=== PATIENT | male | born 1935 | race Caucasian/White ===

== ENCOUNTER 2017-02-08 09:44 | Inpatient (IN) | payer OTHER, MEDICAID ==
[~2017-02-08 09:44] MED LIST: BACITRACIN 50,000 UNITS/10 ML SYR IRR ONE; BUPIVACAINE 0.25% 30 ML SDV ONE; BUPIVACAINE/EPI 0.25% 30 ML SDV ONE; THROMBIN (BOVINE) 20,000 UNIT VIAL TP ONE
--- NOTE | 2017-02-08 13:04 | PDANEPAE ---
ANE History of Present Illness 81 year old male here for lumbar surgery. ANE Past Medical History Past Medical History: No URI/fevers x2 weeks. - Cardiovascular History Hx Hypertension: Yes Hx Arrhythmias: No Hx Chest Pain: No Hx Coronary Artery / Peripheral Vascular Disease: No Hx CHF / Valvular Disease: No Hx Palpitations: No - Pulmonary History Hx COPD: No Hx Asthma/Reactive Airway Disease: No Hx Recent Upper Respiratory Infection: No Hx Oxygen in Use at Home: No Hx Sleep Apnea: No Sleep Apnea Screening Result - Last Documented: Negative Pulmonary History Comment: hypercholesteremia - Neurologic History Hx Cerebrovascular Accident: No Hx Seizures: No Hx Dementia: No - Endocrine History Hx Diabetes: No - Renal History Hx Renal Disorders: No - Liver History Hx Hepatic Disorders: No - Neurological & Psychiatric Hx Hx Neurological and Psychiatric Disorders: Yes Neurological / Psychiatric History Comment: mild dementia - Cancer History Hx Cancer: Yes Cancer History Comment: colon ca - GI History GERD: mild Hx Gastrointestinal Disorders: Yes Gastrointestinal History Comment: acid reflux - Other Health History Other Health History: GOUT - Chronic Pain History Chronic Pain: Yes (legs) - Surgical History Prior Surgeries: colon resection. appendectomy ANE Review of Systems - Exercise capacity METS (RN): 4 METS - Systems Constitutional: Reports: no symptoms Cardiac: Reports: no symptoms Respiratory: Reports: no symptoms Neurological: Reports: other (pain and weakness in legs L>R) ANE Patient History - Allergies Allergies/Adverse Reactions: No Known Allergies Allergy (Unverified 02/07/17 14:31) - Home Medications Home medications: home medication list seen and reviewed Home Medications: Allopurinol 02/07/17 [Last Taken Unknown] Aspirin 02/07/17 [Last Taken Unknown] Atorvastatin Calcium 02/07/17 [Last Taken Unknown] Herbals/Supplements -Info Only 02/07/17 [Last Taken Unknown] Lisinopril 02/07/17 [Last Taken Unknown] Naproxen 02/07/17 [Last Taken Unknown] Omeprazole 02/07/17 [Last Taken Unknown] Probenecid 02/07/17 [Last Taken Unknown] Tramadol HCl 02/07/17 [Last Taken Unknown] - NPO status NPO Status: no food or drink >8 hours - Anes Hx Anes Hx: no prior problems - Smoking Hx Smoking Status: Former smoker (quit 22 years ago) Marijuana use: No - Alcohol Use Alcohol Use: None (quit x22 years ago) - Family Anes Hx Family Hx Anesthesia Complications: neg ANE Labs/Vital Signs - Labs - CBC WBC: labs not available yet, will review when done - Vital Signs Vital Signs: reviewed preoperatively; see RN documention for details Height: 162.56 cm Weight: 78.018 kg ANE Physical Exam - Airway Neck exam: FROM Mallampati Score: Class 2 Mouth exam: dentures (upper complete, lower parrtial) - Pulmonary Pulmonary: no respiratory distress, clear to auscultation - Cardiovascular Cardiovascular: regular rate and rhythym - ASA Status ASA Status: III ANE Anesthesia Plan Anesthesia Plan: general endotracheal anesthesia Lines/Monitors: additional IV
[2017-02-08] MEDS ORDERED: fentaNYL 100 MCG/2 ML INJ IT ONE (13:16)
[2017-02-08] MEDS ORDERED: ceFAZolin 2 GM/DEXTROSE 100 ML IV ONE (13:16)
[2017-02-08] MEDS ORDERED: morphINE PF 5 MG/10 ML INJ IT ONE ×2 (13:16→18:00)
[2017-02-08] MEDS ORDERED: morphINE SR 15 MG TAB PO ONE (13:17)
[2017-02-08] MEDS ORDERED: DEXAMETHASONE 10 MG/ML VIAL IVP ONE (13:17)
[2017-02-08] MEDS ORDERED: TRANEXAMIC ACID 780 MG in NS 100 ML IV ONE (13:17)
[2017-02-08] MEDS ORDERED: GABAPENTIN 300 MG CAP PO ONE (13:17)
[2017-02-08] MEDS ORDERED: TRANEXAMIC ACID 1,000 MG in NS 100 ML IV ONE (13:17)
[2017-02-08] MEDS ORDERED: ACETAMINOPHEN 500 MG TAB PO ONE (13:17)
--- NOTE | 2017-02-08 13:19 | PDHPUP ---
History & Physical Update H&P update statement: This history and physical update is based on an assessment of the patient which was completed after admission or registration (within 24 hours), but prior to the surgery/procedure.
[2017-02-08] MEDS ORDERED: CITRATE DEXTROSE SOLN 500 ML BAG ONE (13:30)
[2017-02-08] MEDS ORDERED: PROPOFOL/EMULSION 500 MG/50 ML BOTTLE IV ONE ×3 (13:38→16:28)
[2017-02-08] MEDS ORDERED: fentaNYL 100 MCG/2 ML INJ ONE ×2 (13:38→17:10)
[2017-02-08] MEDS ORDERED: REMIFENTANIL HCL 1 MG VIAL ONE ×2 (13:38)
[2017-02-08 13:53] LABS: % IMMATURE GRANULYOCYTES 0.2 % (0.0-1.1); ABSOLUTE IMMATURE GRANULOCYTES 0.01 10^3/uL (0.00-0.10); ADD DIFF? NO; ADD MORPH? NO; ADD SCAN? NO; ATYPICAL LYMPHOCYTE FLAG 0 (0-99); FRAGMENT RBC FLAG 0 (0-99); HEMATOCRIT 40.8 % (40.0-51.0); HEMOGLOBIN 14.2 g/dL (13.7-17.5); LEFT SHIFT FLG 0 (0-99); LIPEMIA HEMOLYSIS FLAG 90 (0-99); MEAN CELL HEMOGLOBIN 30.9 pg (27.9-34.1); MEAN CELL HEMOGLOBIN CONCENTR. 34.8 g/dL (32.4-36.7); MEAN CELL VOLUME 88.9 fL (81.5-99.8); MEAN PLATELET VOLUME 10.7 fL (8.7-11.7); PLATELET CLUMPS FLAG 0 (0-99); PLATELET COUNT 196 10^3/uL (150-400); RED BLOOD CELL COUNT 4.59 10^6/uL (4.40-6.38); RED CELL DISTRIBUTION WIDTH 14.5 % (11.5-15.2)
[2017-02-08] MEDS ORDERED: LR 1,000 ML IV ONE (13:54)
[2017-02-08] MEDS ORDERED: DEXMEDETOMIDINE HCL 400 MCG in NS 100 ML IV SCH (14:00)
[2017-02-08] MEDS ORDERED: ROCURONIUM 50 MG/5 ML VIAL ONE (14:00)
[2017-02-08] MEDS ORDERED: ONDANSETRON 4 MG/2 ML VIAL ONE (14:00)
[2017-02-08 14:07] LABS: ANION GAP 14 mEq/L (8-16); CALCIUM 9.7 mg/dL (8.5-10.4); CARBON DIOXIDE 24 mEq/l (22-31); CHLORIDE 108 mEq/L (97-110); CREATININE 0.9 mg/dL (0.7-1.3); GLOMERULAR FILTRATION RATE > 60; GLUCOSE 83 mg/dL (70-100); POTASSIUM 4.4 mEq/L (3.5-5.2); SODIUM 146 mEq/L (134-144)
[2017-02-08] MEDS ORDERED: VASOPRESSIN 20 UNIT/ML VIAL ONE (15:00)
[2017-02-08] MEDS ORDERED: ceFAZolin 1 GM VIAL ONE (17:20)
[2017-02-08] MEDS ORDERED: morphINE PF 10 MG/10 ML INJ IT ONE (17:30)
[2017-02-08] MEDS ORDERED: morphINE PF 5 MG/10 ML INJ ONE (17:31)
[2017-02-08] MEDS ORDERED: ALBUTEROL 3 ML DEYVIAL IH PRN (18:12)
[2017-02-08] MEDS ORDERED: ENALAPRILAT DIHYDRATE 1.25 MG/ML VIAL IVP PRN (18:12)
[2017-02-08] MEDS ORDERED: LR 500 ML IV PRN (18:12)
[2017-02-08] MEDS ORDERED: NALOXONE HCL 0.4 MG/ML INJ IVP PRN ×2 (18:12→18:55)
[2017-02-08] MEDS ORDERED: fentaNYL 100 MCG/2 ML INJ IVP PRN (18:12)
[2017-02-08] MEDS ORDERED: PROMETHAZINE HCL 25 MG/ML INJ IVP PRN (18:12)
[2017-02-08] MEDS ORDERED: hydrALAZINE 20 MG/ML VIAL ONE (18:17)
--- NOTE | 2017-02-08 18:31 | POSTOPPROG ---
Post Op Note Date of Operation: 02/08/17 Surgeon: Ej Huff Computer Scientist: Rebeca Anesthesiologist: Geneva Anesthesia: GET(General Endotracheal) Pre-op Diagnosis: L3/4,4/5 stenosis, DJD Post-op Diagnosis: Same Indication: back and leg pain, critical stenosis Procedure: L3/4,4/5 TLIF Findings: Stenosis Inf/Abcess present in the surg proc area at time of surgery?: No EBL: 100-500 Complications: none Drains: Brady Frias (to bulb suction)
[2017-02-08] MEDS ORDERED: METHOCARBAMOL 750 MG TAB PO PRN (18:36)
[2017-02-08] MEDS ORDERED: ONDANSETRON DISINTEGRATING 4 MG TAB PO PRN (18:36)
[2017-02-08] MEDS ORDERED: POLYETHYLENE GLYCOL 3350 17 GM PKT PO PRN (18:36)
[2017-02-08] MEDS ORDERED: BISACODYL 10 MG SUPP PR PRN (18:36)
[2017-02-08] MEDS ORDERED: diphenhydrAMINE 25 MG CAP PO PRN (18:36)
[2017-02-08] MEDS ORDERED: MAGNESIUM HYDROXIDE 30 ML UDCUP PO PRN (18:36)
[2017-02-08] MEDS ORDERED: ONDANSETRON 4 MG/2 ML VIAL IVP PRN (18:36)
[2017-02-08] MEDS ORDERED: morphINE PCA 30 MG/30 ML PCA IV PRN (18:41)
[2017-02-08] MEDS ORDERED: NS 1,000 ML IV SCH (18:45)
--- NOTE | 2017-02-08 18:47 | SOAPPROG ---
SOAP Progress Note Assessment/Plan: Post op Check: Assessment: Doing well s/p L3-5 TLIF Plan: CPM in PACU Transfer to floor per protocol SHAUN to bulb suction 02/08/17 18:43 Subjective: still sedated, but wakes and follows commands Objective: Vital Signs Temp Pulse Resp BP Pulse Ox 36.9 C 59 L 94 H 195/86 H 94 02/08/17 13:26 02/08/17 13:26 02/08/17 13:26 02/08/17 13:26 02/08/17 13:26 Laboratory Results 02/08/17 13:40 02/08/17 13:40 NEURO: TESFAYE to command, sens +LT Per RN Vitals: HR:57 BP: 106/44 O2: 99% ICD10 Worksheet Patient Problems: Problems Problem Status Onset Lumbar stenosis Acute - ICD10 Problem Qualifiers (1) Lumbar stenosis
--- NOTE | 2017-02-08 19:09 | GOP ---
[f rep st] OPERATIVE REPORT DATE OF OPERATION: 02/08/2017 SURGEON: Ej Huff MD [employer] FINISHER: SHANEL Chappell ANESTHESIA: General endotracheal. PREOPERATIVE DIAGNOSIS: Severe L3-4 and L4-5 degenerative disk disease and disk space collapse with unstable L4-5 spondylolisthesis and critical spinal stenosis at L3-4, L4-5, with severe lateral rec ess impingement and neural foraminal encroachment. The patient failed conservative care. High risk surgical candidate given age of 81 years, comorbidities, and required surgical intervention. POSTOPERATIVE DIAGNOSIS: Severe L3-4 and L4-5 degenerative disk disease and disk space collapse wit h unstable L4-5 spondylolisthesis and critical spinal stenosis at L3-4, L4-5, with severe lateral re cess impingement and neural foraminal encroachment. The patient failed conservative care. High ris k surgical candidate given age of 81 years, comorbidities, and required surgical intervention. PROCEDURE PERFORMED: 1. Left-sided L3-4 and L4-5 far lateral transpedicular decompression with L3 through L5 posterior s egmental (pedicle screw) fixation and posterolateral fusion with local autograft, bone morphogenic p rotein and morselized allograft. 2. L3-4 and L4-5 posterior/transforaminal lumbar interbody fusion by using 2 structural PEEK interb steve spacers, local autograft and bone morphogenic protein at each level. 3. Use of intraoperative microscopy, fluoroscopy and computer volumetric stereotactic navigation, w ith intraoperative neurophysiologic testing. 4. Injection of intrathecal narcotic analgesics and subcutaneous and intramuscular local anesthesia for postoperative pain control. FINDINGS: ESTIMATED BLOOD LOSS: 150 cc. INDICATIONS: The patient is an 81-year-old man with severe multilevel lumbar degenerative joint dis ease and disk space collapse with an unstable spondylolisthesis at the L4-5 level, and critical spin al stenosis at L3-4 and L4-5, with lateral recess and neural foraminal encroachment. The patient villareal s intractable back pain and left greater than right lower extremity radicular discomfort and neuroge hermilo claudication to the point of being in a wheelchair, and presents now for surgical decompression and stabilization with the understanding that there is no guarantee for good surgical outcome, and h e could be worse after surgery, or never recover from it. DESCRIPTION OF PROCEDURE: After informed consent was obtained, the patient was taken to the operati ng room and placed in the prone position on the Brady table. The lumbosacral area was prepped and draped in sterile fashion. After fluoroscopic localization of the correct levels, the subcutaneous and intramuscular tissues were infiltrated with local anesthesia. A midline linear incision was th en created from approximately L3 through L5. This was carried down to the fascial layer, which was incised using the monopolar electrocautery and carried in the subperiosteal plane along the spinous processes and lamina bilaterally. Intraoperative fluoroscopy was again utilized to verify the corre ct levels. Following this, the dissection was carried out over the facet joints. The microscope was then brought in after re-verification of the correct levels and left-sided far la teral transpedicular decompressions were performed with complete unroofing of the facet joints and n eural foramina at L3, L4 and L5, as well as the central canal. Right-sided hemilaminectomy defects were created and the lateral recess decompressed there as well, along with the central canal. Follo wing adequate decompression, the Patient Communicator neuronavigational system was brought in the field, and Adnexus volumetric stereotactic navigation, pedicle screws were placed at L3, L4, and L5 on the l eft. Each individual screw was tested neurophysiologically with monopolar electrical stimulation an d interpretation of the potentials by the surgeon. Rods were then individually placed first at L3-4 , then at L4-5, during which time, the interspaces were distracted apart and complete diskectomies w ere performed with preparation of the endplates and placement of 2 structural PEEK interbody spacers , local autograft and bone morphogenic protein for L3-4 and L4-5 posterior/transforaminal lumbar int erbody fusions. The screw and deepika system was then placed in a slight amount of compression, in orde r to facilitate bony union and to minimize the potential for posterior graft migration. Following this, axial devices were placed at L3-4 and L4-L5 in lieu of right-sided pedicle screws, i n order to maximize the bony surface area for the posterolateral fusion and minimize the risk of rica ral injury or other problems with the pedicle screws on that side. The remaining lamina and facet j oints were then extensively decorticated and the residual local autograft along with bone morphogeni c protein and morselized allograft was placed out laterally for posterolateral fusion from L3 throug h L5. 200 mcg of Duramorph along with 50 mcg of fentanyl was injected intrathecally for postoperati ve pain control along with the subcutaneous and intramuscular tissues, which were re-infiltrated wit h local anesthesia. A drain was then placed. The wound was again copiously irrigated with antibiot ic irrigation and closed in a layered fashion using interrupted Vicryl sutures followed by Steri-Str ips on the skin. COMPLICATIONS: None. DISPOSITION: The patient is currently in the process of being repositioned for extubation. /[id number]/MODL
--- NOTE | 2017-02-08 19:35 | POSTANESTH ---
Post Anesthetic Evaluation Cardiovascular Status: Normal, Stable Respiratory Status: Normal, Stable Level of Consciousness/Mental Status: Moderately Sleepy Pain Control: Adequate, Prn Tx Ordered Nausea/Vomiting Control: Adequate, Prn Tx Ordered Complications Possibly Related to Anesthesia: None Noted (Moves extremities x4.)
[2017-02-08] MEDS: ceFAZolin 2 GM/DEXTROSE 100 ML IV SCH (22:02)
[2017-02-08] MEDS: ACETAMINOPHEN 500 MG TAB PO SCH ×2 (22:02→22:52)
[2017-02-08] MEDS: FAMOTIDINE 20 MG TAB PO SCH ×2 (22:03→22:52)
[2017-02-08] MEDS: morphINE SR 15 MG TAB PO SCH (22:03)
[2017-02-08] MEDS: POLYETHYLENE GLYCOL 3350 17 GM PKT PO SCH (22:04)
[2017-02-08] MEDS: SENNOSIDES/DOCUSATE SODIUM TAB PO SCH (22:04)
[2017-02-09] MEDS: ACETAMINOPHEN 500 MG TAB PO SCH ×4 (05:23→20:40)
[2017-02-09] MEDS: ceFAZolin 2 GM/DEXTROSE 100 ML IV SCH (05:23)
[2017-02-09 05:24] LABS: % IMMATURE GRANULYOCYTES 0.6 % (0.0-1.1); ABSOLUTE IMMATURE GRANULOCYTES 0.05 10^3/uL (0.00-0.10); ADD DIFF? NO; ADD MORPH? NO; ADD SCAN? NO; ATYPICAL LYMPHOCYTE FLAG 0 (0-99); FRAGMENT RBC FLAG 0 (0-99); HEMATOCRIT 33.4 % (40.0-51.0); HEMOGLOBIN 11.4 g/dL (13.7-17.5); LEFT SHIFT FLG 10 (0-99); LIPEMIA HEMOLYSIS FLAG 90 (0-99); MEAN CELL HEMOGLOBIN 30.6 pg (27.9-34.1); MEAN CELL HEMOGLOBIN CONCENTR. 34.1 g/dL (32.4-36.7); MEAN CELL VOLUME 89.5 fL (81.5-99.8); MEAN PLATELET VOLUME 10.7 fL (8.7-11.7); PLATELET CLUMPS FLAG 0 (0-99); PLATELET COUNT 167 10^3/uL (150-400); RED BLOOD CELL COUNT 3.73 10^6/uL (4.40-6.38); RED CELL DISTRIBUTION WIDTH 14.4 % (11.5-15.2)
[2017-02-09 05:36] LABS: ANION GAP 10 mEq/L (8-16); CALCIUM 8.5 mg/dL (8.5-10.4); CARBON DIOXIDE 21 mEq/l (22-31); CHLORIDE 111 mEq/L (97-110); CREATININE 0.8 mg/dL (0.7-1.3); GLOMERULAR FILTRATION RATE > 60; GLUCOSE 101 mg/dL (70-100); POTASSIUM 4.3 mEq/L (3.5-5.2); SODIUM 142 mEq/L (134-144)
--- NOTE | 2017-02-09 07:50 | SOAPPROG ---
SOAP Progress Note Assessment/Plan: Assessment: POD #1 s/p L3-5 TLIF. Doing well , pain controlled Plan: PT/OT today LSO today Xrays today Continue SHAUN to bulb suction Subjective: awake, alert, comfortable. denies tingling or weakness Objective: Vital Signs Temp Pulse Resp BP Pulse Ox 36.8 C 54 L 18 137/85 H 99 02/09/17 07:39 02/09/17 07:39 02/09/17 07:39 02/09/17 07:39 02/09/17 07:39 Laboratory Results 02/09/17 04:37 02/09/17 04:37 02/08/17 02/09/17 02/10/17 05:59 05:59 05:59 Intake Total 2750 Output Total 775 Balance 1974 NEURO: TESFAYE, sens +LT follows commands SHAUN: 300ml ICD10 Worksheet Patient Problems: Problems Problem Status Onset Lumbar stenosis Acute - ICD10 Problem Qualifiers (1) Lumbar stenosis
[2017-02-09] MEDS: SENNOSIDES/DOCUSATE SODIUM TAB PO SCH ×2 (08:21→20:42)
[2017-02-09] MEDS: FAMOTIDINE 20 MG TAB PO SCH ×2 (08:21→20:42)
[2017-02-09] MEDS: POLYETHYLENE GLYCOL 3350 17 GM PKT PO SCH ×3 (08:21→20:40)
[2017-02-09] MEDS: morphINE SR 15 MG TAB PO SCH ×2 (08:22→20:42)
[2017-02-09] MEDS: ENOXAPARIN 40 MG/0.4 ML SYR SC SCH (08:22)
[2017-02-09] MEDS: oxyCODONE IR 5 MG TAB PO PRN (15:07)
[2017-02-09] MEDS: LISINOPRIL 10 MG TAB PO SCH (20:41)
[2017-02-10] MEDS: ACETAMINOPHEN 500 MG TAB PO SCH ×3 (04:13→21:17)
[2017-02-10] MEDS: FAMOTIDINE 20 MG TAB PO SCH ×2 (08:14→21:18)
[2017-02-10] MEDS: morphINE SR 15 MG TAB PO SCH ×2 (08:14→21:20)
[2017-02-10] MEDS: SENNOSIDES/DOCUSATE SODIUM TAB PO SCH ×2 (08:14→21:23)
[2017-02-10] MEDS: POLYETHYLENE GLYCOL 3350 17 GM PKT PO SCH ×3 (08:15→21:38)
[2017-02-10] MEDS: ENOXAPARIN 40 MG/0.4 ML SYR SC SCH (08:15)
--- NOTE | 2017-02-10 08:46 | NEUSURGPN ---
Assessment/Plan: POD #2 s/p L3-5 TLIF. Doing well , pain controlled Plan: PT/OT today Xrays pending Continue SHAUN drain Optimize pain management DVT prophx: TEDs, SCDs, Lovenox POD1 Please notify NS with any change in neuro/motor exam Subjective: low back pain Objective: NAD A&Ox3 MAEx4 / and equal in BUE and BLE. Incision c/d/i. SAHUN drain serosanginous Catheter Insertion Date: 02/08/17 - Physician Discussed Patient with : [facility] Neurosurgery Physical Exam - Vitals, I&O, Labs I and O 02/09/17 02/10/17 02/11/17 05:59 05:59 05:59 Intake Total 2750 0 Output Total 775 195 Balance 1974 - Weight 78.018 kg Intake: IV Intake (ml) 1650 0 IV Infused (ml) 1100 Ns 1,000 ml @ 100 mls/hr 900 IV CONT TRACY Rx#: [id number] ceFAZolin 2 GM/DEXTROSE 200 100 ml @ 200 mls/hr IV Q8HRS TRACY Rx#:[id number] Output: Urine (ml) 325 Catheter 325 Estimated Blood Loss (ml) 150 SHAUN Drain Output (ml) 300 195 Back Brady Frias 300 195 Other: Intake Quantity Yes Sufficient Number of Voids Catheter 1 Vital Signs Temp Pulse Resp BP Pulse Ox 36.5 C 69 14 112/57 L 91 L 02/10/17 08:00 02/10/17 08:00 02/10/17 08:00 02/10/17 08:00 02/10/17 08:00 Laboratory Results 02/09/17 04:37 02/09/17 04:37 ICD10 Worksheet Patient Problems: Problems Problem Status Onset Lumbar stenosis Acute
[2017-02-10] MEDS: LISINOPRIL 10 MG TAB PO SCH (21:19)
[2017-02-11] MEDS: ACETAMINOPHEN 500 MG TAB PO SCH (05:14)
--- NOTE | 2017-02-11 07:40 | SOAPPROG ---
SOAP Progress Note Assessment/Plan: Assessment: POD #1 s/p L3-5 TLIF. Doing well , pain controlled ambulating with walker Plan: PT/OT DC SHAUN to bulb suction DC home discussed with Dr. Aldridge Subjective: walking hallway with walker doing well no BM denies new issues Objective: Vital Signs Temp Pulse Resp BP Pulse Ox 36.5 C 78 14 158/64 H 94 02/11/17 04:00 02/11/17 04:00 02/11/17 04:00 02/11/17 04:00 02/11/17 04:00 Laboratory Results 02/09/17 04:37 02/09/17 04:37 02/10/17 02/11/17 02/12/17 05:59 05:59 05:59 Intake Total 0 Output Total 195 85 Balance -195 -85 Neuro: Calvin, sens +LT ambulatory Dressing: CDI SHAUN: 85ml ICD10 Worksheet Patient Problems: Problems Problem Status Onset Lumbar stenosis Acute - ICD10 Problem Qualifiers (1) Lumbar stenosis
[2017-02-11 07:47] VITALS: BP 157/67; PULSE 86; RESP 18; TEMP 98; O2SAT 95
[2017-02-11] MEDS: ENOXAPARIN 40 MG/0.4 ML SYR SC SCH (08:32)
[2017-02-11] MEDS: POLYETHYLENE GLYCOL 3350 17 GM PKT PO SCH (08:33)
[2017-02-11] MEDS: SENNOSIDES/DOCUSATE SODIUM TAB PO SCH (08:33)
[2017-02-11] MEDS: FAMOTIDINE 20 MG TAB PO SCH (08:33)
[2017-02-11] MEDS: morphINE SR 15 MG TAB PO SCH (08:33)
[2017-02-11] MEDS ORDERED: MAGNESIUM CITRATE 300 ML BOTTLE PO ONE (08:48)
[2017-02-11] MEDS: oxyCODONE IR 5 MG TAB PO PRN (11:48)
== END 2017-02-11 14:23 | disposition home or self-care (01) | DRG 460 ==
LOC: F3N 12:25
PROVIDERS: ADMIT Neurological Surgery; ATTEND Neurological Surgery
PROC: 4A1004G Monitoring of Central Nervous Electrical Activity, Intraoperative, Open Approach (ICD-10-PCS; principal; 2017-02-08 13:45)
PROC: 00NY0ZZ Release Lumbar Spinal Cord, Open Approach (ICD-10-PCS; principal; 2017-02-08 13:45)
PROC: 0SG10AJ Fusion of 2 or more Lumbar Vertebral Joints with Interbody Fusion Device, Posterior Approach, Anterior Column, Open Approach (ICD-10-PCS; principal; 2017-02-08 13:45)
PROC: 8E0WXBZ Computer Assisted Procedure of Trunk Region (ICD-10-PCS; principal; 2017-02-08 13:45)
PROC: 0ST20ZZ Resection of Lumbar Vertebral Disc, Open Approach (ICD-10-PCS; principal; 2017-02-08 13:45)
CPT/HCPCS: 97116-GP; 97161-GP; 97165-GO; 97535-GO; C1713; C1762; G8978-GP-CK; G8979-GP-CI; G8987-GO-CK; G8988-GO-CI; G8989-GO-CI; J0360; J0690; J1100; J1650; J2274; J2405; J2704; J3010; J7060

== ENCOUNTER 2017-02-16 14:37 | Inpatient (IN) | payer OTHER, MEDICAID ==
[2017-02-16] MEDS ORDERED: LACTULOSE 20 GM/30 ML UDCUP PO PRN (17:00)
[2017-02-16] MEDS ORDERED: ONDANSETRON DISINTEGRATING 4 MG TAB PO PRN (17:00)
[2017-02-16] MEDS ORDERED: oxyCODONE IR 5 MG TAB PO PRN (17:00)
[2017-02-16] MEDS ORDERED: diphenhydrAMINE 25 MG CAP PO PRN (17:00)
[2017-02-16] MEDS ORDERED: ONDANSETRON 4 MG/2 ML VIAL IVP PRN (17:00)
[2017-02-16] MEDS ORDERED: METHOCARBAMOL 750 MG TAB PO PRN (17:00)
[2017-02-16] MEDS ORDERED: NS 1,000 ML IV SCH (17:00)
[2017-02-16] MEDS ORDERED: BISACODYL 10 MG SUPP PR PRN (17:00)
[2017-02-16] MEDS ORDERED: MAGNESIUM HYDROXIDE 30 ML UDCUP PO PRN (17:00)
[2017-02-16] MEDS ORDERED: DIAZEPAM 5 MG TAB PO PRN (17:04)
[2017-02-16 19:08] LABS: ATYPICAL LYMPHOCYTE FLAG 10 (0-99); FRAGMENT RBC FLAG 0 (0-99); LEFT SHIFT FLG 0 (0-99); LIPEMIA HEMOLYSIS FLAG 80 (0-99)
[2017-02-16 19:15] LABS: PLATELET CLUMPS FLAG 230 (0-99)
[2017-02-16 19:46] LABS: ANION GAP 15 mEq/L (8-16); CALCIUM 8.8 mg/dL (8.5-10.4); CARBON DIOXIDE 16 mEq/l (22-31); CHLORIDE 100 mEq/L (97-110); CREATININE 0.9 mg/dL (0.7-1.3); GLOMERULAR FILTRATION RATE > 60; GLUCOSE 100 mg/dL (70-100); POTASSIUM 4.5 mEq/L (3.5-5.2); SODIUM 131 mEq/L (134-144)
[2017-02-16 20:37] LABS: % IMMATURE GRANULYOCYTES 0.7 % (0.0-1.1); ABSOLUTE IMMATURE GRANULOCYTES 0.05 10^3/uL (0.00-0.10); ADD DIFF? NO; ADD MORPH? NO; ADD SCAN? YES; ATYPICAL LYMPHOCYTE FLAG 10 (0-99); FRAGMENT RBC FLAG 0 (0-99); HEMATOCRIT 30.6 % (40.0-51.0); HEMOGLOBIN 10.4 g/dL (13.7-17.5); LEFT SHIFT FLG 0 (0-99); LIPEMIA HEMOLYSIS FLAG 90 (0-99); MEAN CELL HEMOGLOBIN 30.5 pg (27.9-34.1); MEAN CELL VOLUME 89.7 fL (81.5-99.8); MEAN PLATELET VOLUME 9.9 fL (8.7-11.7); PLATELET COUNT 197 10^3/uL (150-400); RED BLOOD CELL COUNT 3.41 10^6/uL (4.40-6.38); RED CELL DISTRIBUTION WIDTH 13.6 % (11.5-15.2)
[2017-02-16 20:39] LABS: PLATELET CLUMPS FLAG 300 (0-99)
[2017-02-16] MEDS ORDERED: GADOBUTROL 10 ML VIAL IVP ONE (20:56)
[2017-02-16 21:21] VITALS: RESP 18
[2017-02-16 21:28] LABS: SCAN NEGATIVE
[2017-02-16] MEDS: morphINE SR 15 MG TAB PO SCH (23:16)
[2017-02-16] MEDS: PROBENECID 500 MG TAB PO SCH (23:30)
[2017-02-16] MEDS: ACETAMINOPHEN 500 MG TAB PO SCH (23:30)
[2017-02-16] MEDS: FAMOTIDINE 20 MG TAB PO SCH (23:32)
[2017-02-17] MEDS: SENNOSIDES/DOCUSATE SODIUM TAB PO SCH ×2 (00:08→09:34)
[2017-02-17 03:44] VITALS: TEMP 97.3
[2017-02-17 05:56] LABS: COLOR YELLOW; LEUKOCYTE ESTERASE,URINE NEGATIVE (NEGATIVE); NITRITE,URINE NEGATIVE (NEGATIVE)
[2017-02-17] MEDS: ACETAMINOPHEN 500 MG TAB PO SCH (06:40)
[2017-02-17 07:55] VITALS: PULSE 58; O2SAT 96
[2017-02-17] MEDS: FAMOTIDINE 20 MG TAB PO SCH (08:56)
[2017-02-17] MEDS: PROBENECID 500 MG TAB PO SCH (08:56)
[2017-02-17] MEDS ORDERED: ALLOPURINOL 300 MG TAB PO SCH (09:00)
[2017-02-17] MEDS ORDERED: LISINOPRIL 40 MG TAB PO SCH (09:00)
[2017-02-17 09:03] VITALS: BP 135/57
--- NOTE | 2017-02-17 09:07 | NEUSURGPN ---
Date of Surgery: 02/08/17 Post Op Day: 9 Assessment/Plan: 81 yr old s/p L3-[address] Huff on 02/08 direct admitted 02/16 due to pain and decreased mobility Plan: -Pain is improved this am -UA negative -MRI lumbar shows post operative changes, patient refused contrast so unable to assess for infection. No need to repeat MRI. -WBC 6.8 -US doppler negative for DVT -Holding MS Contin, patient pain seems to be managed without it and will continue to hold. Improved mental status -May discharge home today, follow up with Dr Huff for routine post op appointment Discussed patient and plan with Dr Huff Subjective: Patient states pain is improved and would like to go home Objective: AxO x3 EOMI PERRLA BLE 5/5 BUE 5/5 sensation intact to lt touch BLE Incision CDI Neuro Check Frequency: per routine Urinary Catheter in Place: No - Physician Discussed Patient with Dr.: Huff Neurosurgery Physical Exam - Vitals, I&O, Labs I and O 02/16/17 02/17/17 02/18/17 05:59 05:59 05:59 Intake Total 200 Output Total 400 250 Balance -200 -250 Weight 68.039 kg Intake: Oral (ml) 200 Output: Urine (ml) 400 250 Urinal 400 250 Other: Intake Quantity No Sufficient Number of Voids Incontinence 1 Vital Signs Temp Pulse Resp BP Pulse Ox 36.3 C 58 L 18 133/57 H 96 02/17/17 03:44 02/17/17 07:55 02/17/17 03:44 02/17/17 03:44 02/17/17 07:55 Laboratory Results 02/16/17 20:15 02/16/17 19:00 ICD10 Worksheet Patient Problems: Problems Problem Status Onset Lumbar stenosis Acute
[2017-02-17] MEDS: morphINE SR 15 MG TAB PO SCH (09:33)
--- NOTE | 2017-02-17 09:55 | PDIAF ---
- Diagnosis Diagnosis: S/P L3-5 [facility] 02/08 Code Status: Full Code - Medication Management Discharge Medications: Medications to Continue on Transfer Allopurinol [Allopurinol 300 MG (RX)] 300 mg PO DAILY #0 02/07/17 [Last Taken 02/15/17] Lisinopril [Zestril 40 mg (*)] 40 mg PO DAILY #0 02/07/17 [Last Taken 02/15/17] Omeprazole [Prilosec 20 mg] 20 mg PO DAILY #0 02/07/17 [Last Taken 02/15/17] Probenecid [Probenecid 500mg (*)] 500 mg PO BID #0 02/07/17 [Last Taken 21:00] Methocarbamol [Robaxin 750 mg (*)] 750 mg PO QID PRN #60 tab 02/11/17 [Last Taken Unknown] Diazepam [Valium 5 MG (*)] 5 mg PO Q8HRS PRN 02/16/17 [Last Taken Unknown] morphINE SR [Ms Contin/Oramorph 15 mg (*)] 15 mg PO BID 02/16/17 [Last Taken 09/03] oxyCODONE IR [Oxycodone Ir (*)] 5 - 10 mg PO Q4-6PRN PRN 02/16/17 [Last Taken Unknown] Acetaminophen [Tylenol ES 500 mg (*)] 1,000 mg PO Q8HRS #0 tab 02/17/17 [Last Taken Unknown] Methocarbamol [Robaxin 750 mg (*)] 750 mg PO QID PRN #0 tab 02/17/17 [Last Taken Unknown] Sennosides/Docusate Sodium [Senokot-S] 1 - 2 tab PO BID #0 tab 02/17/17 [Last Taken Unknown] oxyCODONE IR [Oxycodone Ir (*)] 5 - 10 mg PO Q4HRS PRN #0 tab 02/17/17 [Last Taken Unknown] Discharge Medications: Refer to the Discharge Home Medication list for PRN reason. PICC Care - Routine: N/A - Orders Services needed: Home Care, Registered Nurse, Certified Valve Repairer, Physical Therapy, Occupational Therapy Home Care Face to Face: I certify that this patient was under my care and that I had the required [id number] encounter meeting the encounter requirements on the discharge day. My findings support the fact that the patient is homebound as defined in CMS Chapter 7 Medicare Benefits Manual 30.1.1, The condition of the patient is such that there exists a normal inability to leave home and consequently, leaving home would require a considerable and taxing effort. Diet Recommendation: no restrictions on diet Diet Texture: Regular Texture Diet Linda: Not applicable Margy Stockings Discontinue Date: When ambulating 100-200 yards 3-4 times per day may dc margy hose Activity/Weight Bearing Restrictions: No twisting, bending or lifting greater than 10-20 pounds Equipment: Wear brace when out of bed - Follow Up Care Current Providers and Referrals: Ej Hfuf MD [Primary Care Provider] - follow up in 10 days
--- NOTE | 2017-02-17 15:10 | GHP ---
[f rep st] PREOP HISTORY AND PHYSICAL DATE OF ADMISSION: 02/16/2017 CHIEF COMPLAINT: Progressive weakness. HISTORY OF PRESENT ILLNESS: The patient is an 81-year-old male, who underwent an L3-4 and L4-5 garza sforaminal lumbar interbody fusion by Dr. Huff on 02/08/2017. He did well postoperatively and was discharged home. He was evaluated in the office on 02/16/2017, and he was found to have pro gressively worsening back pain, left leg pain, generalized weakness, ataxia, difficulty ambulating i n the house, with an episode of incontinence. He was evaluated and admitted to the hospital for fur ther evaluation. He currently complains of ongoing pain in his back, with pain in his left leg. He feels generally weak and had difficulty walking. He has been warm, but has not had any true fevers . He denies any drainage from his incision. PAST MEDICAL HISTORY: 1. Recent spinal fusion. 2. GERD. 3. Hypertension. MEDICATIONS PRIOR TO ADMISSION: Robaxin, Prilosec, oxycodone, allopurinol, Valium, Zestril, MS Cont in, and probenecid. ALLERGIES: No known drug allergies. FAMILY HISTORY: Patient has no family history of spine issues. SOCIAL HISTORY: The patient is with grown children and grandchildren. No known smoking, dr inking, or drug use. REVIEW OF SYSTEMS: Negative. PHYSICAL EXAM: GENERAL APPEARANCE: Patient is an 81-year-old male lying in bed, in a mild amount o f distress. HEAD, EYES, EARS, NOSE, AND THROAT: Negative to drainage. EXTREMITIES: [place], warm, a nd dry. NEUROLOGICAL: Patient is awake, alert, oriented x4. Pupils equal, round, reactive to ligh t. Extraocular motions are intact. There is no evidence of facial droop. Tongue and uvula are mid line. Spinal accessory muscles are intact. His motor strength appears physiologic and 5/5 in his a randall and legs, but he is effort dependent. Sensation is grossly intact to light touch in his arms an d legs. Deep tendon reflexes are 1+ out of 4 in bilateral biceps, triceps, brachioradialis, patella r, and Achilles. There is a negative Socrates with no clonus. IMPRESSION: This is an 81-year-old male, who is approximately 8 days out from an L3-4 and L4-5 garza sforaminal lumbar interbody fusion. He is admitted with generalized weakness and failure to thrive. PLAN: All the above discussed in detail with the patient and his family, who were present. At this point in time, he will be admitted to the hospital for serological studies, and obtain an MRI of hi s lumbar spine to evaluate for any compressive fluid collections or abnormalities. Will also obtain an ultrasound of his lower leg to rule out a DVT. We will have him work with Physical Therapy and Occupational Therapy, and work on pain management. Will make further treatment recommendations upon completion of his blood work and imaging studies. Please call with any neurological changes. /[id number]/MODL
== END 2017-02-17 12:30 | disposition home health service (06) | DRG 641 ==
LOC: F3N 15:04
PROVIDERS: ADMIT Neurological Surgery; ATTEND Neurological Surgery
DX: R62.7 Adult failure to thrive (principal); K21.9 Gastro-esophageal reflux disease without esophagitis; I10 Essential (primary) hypertension; Z98.1 Arthrodesis status
CPT/HCPCS: 97162-GP; 97165-GO; A9585; G8978-GP-CK; G8979-GP-CI; G8987-GO-CJ; G8988-GO-CJ; G8989-GO-CJ

== ENCOUNTER → 2017-05-18 | Outpatient (CLI) | payer OTHER, MEDICAID | LOC: FIMAGING 11:55 → EDSTATUS 11:58 → FIMAGING 11:59 | PROVIDERS: ATTEND Physician Assistant Surgical | DX: M43.26 Fusion of spine, lumbar region (principal) ==